=== PATIENT | male | born 1975 | race Caucasian/White ===

== ENCOUNTER 2021-02-28 08:18 | Emergency (ER) | payer BC, SELFPAY ==
[2021-02-28 08:19] VITALS: BP 191/115; PULSE 72; RESP 16; TEMP 36.8; O2SAT 99; BMI 31.6
--- NOTE | 2021-02-28 08:38 | RAD_ITS ---
STUDY: X-RAY - LEFT SHOULDER REASON FOR EXAM: Male, 45 years old. INJURY TECHNIQUE: 4 view(s) of the shoulder. COMPARISON: None. 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 Normal acromion. Normal humeral head and visualized proximal humerus. The soft tissue structures are unremarkable. Normal visualized pulmonary apex. RAD/Shoulder min 2 Views IMPRESSION: Mild arthrosis, no demonstrated fracture or suspicious osseous lesion Electronically Signed: Song Blas MD at 8:55 EDT , Service support ,
--- NOTE | 2021-02-28 09:54 | EDS_ITS ---
HPI History of Present Illness Chief Complaint: Upper Extremity Injury Informant: patient Narrative Narrative: Patient is a 45-year-old male with no significant past medical history presenting with left shoulder pain. Patient states he had an injury to the shoulder about a year and a half ago. He notes been more irritated the past 2 days. Yesterday he was carried his [id number] son when he tripped and fell. He landed on his elbow and shoulder. Since then he has had significant pain of his left shoulder when he tries to move it. If he holds his shoulder out to his side and with his elbow flexed he notes it does not really hurt. He last had ibuprofen last night. Has not seen orthopedist for. Denies associated numbness or tingling. No history of dislocation or other injury. No other complaints at this time. PFSH PFSH no medical history Home Medications NK 02/28/21 [History Last Taken Unknown] Allergy/AdvReac Type Severity Reaction Status Date / Time No Known Allergies Allergy Verified 02/28/21 08:20 no significant family history no surgical history Social History Smoking Status: Unknown if ever smoked ROS ROS ED Constitutional Constitutional ED: Denies chills or frequent falls ENT ENT ED: Denies ear pain or rhinorrhea Cardiovascular Cardiovascular: Denies chest pain Respiratory/Chest Respiratory/Chest: Denies cough or dyspnea Gastrointestinal Gastrointestinal: Denies abdominal pain or vomiting Musculoskeletal Musculoskeletal: Reports other Details: let shoulder pain Integumentary Reports Abrasions; Denies rash Neurologic Neurologic: Denies headache(s), paresthesias or weakness Psychiatric Psychiatric: Denies depression EXAM Physical Exam Const Vital Signs: 02/28/21 08:19 Temperature 98.2 F Temperature Source Temporal Pulse Rate 72 Respiratory Rate 16 Blood Pressure 191/115 H Blood Pressure Mean 140 Pulse Ox 99 Oxygen Delivery Method Room Air Positive well nourished and well developed General Appearance ED: well developed HEENT normocephalic and atraumatic Eyes PERRL Neck full ROM and supple Chest Wall inspection of chest normal Resp normal respiratory effort and clear to auscultation bilaterally Cardio regular rate and regular rhythm GI Palpation: soft Extremity Extremity Narrative: Mild diffuse tenderness palpation of the left shoulder. Normal joints appearance. Patient has significantly decreased range of motion with active abduction and flexion of the shoulder. Diminished range of motion with internal rotation. Range of motion is improved with passive movement. Little pain with passive range of motion in all planes. Patient is neurovascular intact distally. Normal strength and sensation in the hand and movement of the forearm. Neuro oriented x3 Sensorium / Orientation: alert Motor Exam: Negative for strength abnormal or muscle tone abnormal MDM MDM MDM Narrative Medical decision making narrative: Patient evaluated for worsening left shoulder pain. It was aggravated when he fell on it yesterday. He has limited range of motion in all planes but most pronounced with flexion and abduction. He is neuro vastly intact. He is given a sling for comfort. He is given Motrin. Is instructed to take 600 mg over-the -counter ibuprofen every 6 hours as needed for pain. He is referred to orthopedics for outpatient follow-up. X-ray does not show any acute process. X-ray to read by myself as well as radiology. I do not suspect dislocation. Impression 1. rotator cuff injury 2. Left shoulder pain Radiography Diagnostic Testing: Radiology Impression Shoulder X-Ray 02/28/21 08:38 IMPRESSION: Mild arthrosis, no demonstrated fracture or suspicious osseous lesion Electronically Signed: Song Blas MD at 8:55 EDT , Service support , Discharge Plan Triage Chief Complaint: Upper Extremity Injury ED Provider: Fabiola Moon Dx/Rx/DC Orders Instructions: ED Rotator Cuff Tear, ED Shoulder Pain, Uncertain Cause Prescriptions: No Action NK RF: 0 Primary Care Provider: Jerald Solorio Referrals: Jerald Solorio MD [Primary Care Provider] - Sarthak Oliveros MD [STAFF PHYSICIAN] - Activity Restrictions/Additional Instructions: wear sling as needed for comfort. Do range of motion exercises (as shown in the ED) throughout the day to prevent frozen shoulder.
[2021-02-28 10:17] VITALS: BP 118/63; PULSE 75; RESP 14; O2SAT 99
[2021-02-28] MEDS: Ibuprofen 600 MG Tablet PO (10:17)
== END 2021-02-28 10:18 | disposition home or self-care (01) ==
LOC: ED 09:05
PROVIDERS: Emergency Provider Emergency Medicine; PCP Family Medicine
DX: S46.002A Unspecified injury of muscle(s) and tendon(s) of the rotator cuff of left shoulder, initial encounter (principal); W01.0XXA Fall on same level from slipping, tripping and stumbling without subsequent striking against object, initial encounter; Y93.01 Activity, walking, marching and hiking; Y92.89 Other specified places as the place of occurrence of the external cause; Y99.8 Other external cause status
CPT/HCPCS: 73030; 99283